=== PATIENT | female | born 1985 | race Caucasian/White ===

== ENCOUNTER → 2016-08-05 | Outpatient (CLI) | payer OTHER ==
[~2016-08-05] MED LIST: FERR1TAB23; PRENTAB65 PO
[2016-08-05 17:42] LABS: BASO % 0.2 %; BASO ABS # 0.02 K/uL (0-0.2); COMPLETE YES; EOS % 1.1 %; HEMATOCRIT 35.7 % (37-47); IG% 0.4 %; LYMPH % 25.5 %; LYMPH ABS # 2.91 K/uL (1.2-3.4); MEAN CELL VOLUME 87.9 fL (80-100); MEAN CORPUSCULAR HEMOGLOBIN 29.3 pg (25-34); MEAN CORPUSCULAR HGB CONC 33.3 g/dl (32-36); MEAN PLATELET VOLUME 9.9 fL (7.4-10.4); MONO % 5.3 %; NEUT % 67.5 %; PLATELET COUNT 270 K/uL (130-400); RED BLOOD COUNT 4.06 M/uL (4.2-5.4); WHITE BLOOD COUNT 11.42 K/uL (4.8-10.8)
[2016-08-08 13:25] LABS: CHLAMYDIA TRACH RNA*** NOT DETECTED (NOT DETECTED); GC (NEIS GONORRHOEAE)RNA** NOT DETECTED (NOT DETECTED)
== END | disposition home or self-care (01) ==
LOC: C.LAB1850 16:04
PROVIDERS: ATTEND Obstetrics & Gynecology
DX: R00.2 Palpitations (principal); Z34.90 Encounter for supervision of normal pregnancy, unspecified, unspecified trimester

== ENCOUNTER → 2016-08-05 | Outpatient (CLI) | payer OTHER | END | disposition home or self-care (01) | LOC: C.PAPS 08:46 | PROVIDERS: ATTEND Obstetrics & Gynecology | DX: Z34.90 Encounter for supervision of normal pregnancy, unspecified, unspecified trimester (principal); R87.612 Low grade squamous intraepithelial lesion on cytologic smear of cervix (LGSIL) ==

== ENCOUNTER 2016-08-06 11:25 | Emergency (ER) | payer OTHER ==
[~2016-08-06] VITALS: Ht 162.6 cm; Wt 53.5 kg
[2016-08-06 11:31] VITALS: TEMP 37.1; Ht 162.6 cm; Wt 53.5 kg
[2016-08-06 12:42] LABS: PROTHROMBIN TIME (PATIENT) 10.6 SECONDS (9.0-12.0)
[2016-08-06 13:01] LABS: ALT/SGPT 16 U/L (12-78); AST/SGOT 11 U/L (15-37); BLOOD UREA NITROGEN 8 mg/dl (7-18); BUN/CREATININE RATIO 16.9 (10-20); CALCIUM 8.6 mg/dl (8.5-10.1); CARBON DIOXIDE 24 mmol/L (21-32); CHLORIDE 106 mmol/L (98-107); CREATININE 0.49 mg/dl (0.60-1.20); GLUCOSE 70 mg/dl (70-99); MAGNESIUM 2.2 mg/dl (1.8-2.4); POTASSIUM 3.7 mmol/L (3.5-5.1); SODIUM 139 mmol/L (136-145)
--- NOTE | 2016-08-06 13:05 | DIAGNOSTIC IMAGING REPORT ---
ULTRASOUND VENOUS DOPPLER LWR EXT BILA CLINICAL HISTORY: Leg swelling CHEST PAIN AND SHORTNESS OF BREATH. . COMPARISON STUDY: No previous studies for comparison. FINDINGS: Real-time and color flow Doppler imaging were performed. Flow was seen within the femoral, popliteal and calf veins with no intraluminal thrombus demonstrated. The saphenous vein is patent. IMPRESSION: No evidence of lower extremity DVT. Electronically signed by: Tommy Jones M.D. 08/06/2016 1:04 PM
[2016-08-06 13:07] LABS: ALB/GLOB RATIO 1.1 (0.9-2); ALKALINE PHOSPHATASE 54 U/L (45-117); CKMB/CK RATIO 1.1 (0-3.0)
[2016-08-06 13:09] LABS: BASO % 0.2 %; BASO ABS # 0.02 K/uL (0-0.2); COMPLETE YES; EOS % 1.1 %; HEMATOCRIT 35.6 % (37-47); IG% 0.3 %; LYMPH % 22.1 %; LYMPH ABS # 2.49 K/uL (1.2-3.4); MEAN CELL VOLUME 87.3 fL (80-100); MEAN CORPUSCULAR HEMOGLOBIN 29.2 pg (25-34); MEAN CORPUSCULAR HGB CONC 33.4 g/dl (32-36); MONO % 5.6 %; NEUT % 70.7 %; PLATELET COUNT 256 K/uL (130-400); RED BLOOD COUNT 4.08 M/uL (4.2-5.4); WHITE BLOOD COUNT 11.29 K/uL (4.8-10.8)
--- NOTE | 2016-08-06 13:18 | DIAGNOSTIC IMAGING REPORT ---
CHEST 2 VIEWS ROUTINE CLINICAL HISTORY: Left-sided chest pain COMPARISON STUDY: No previous studies for comparison. FINDINGS: The cardiac and mediastinal contours are normal. There is no evidence of focal pulmonary consolidation. There is no evidence of failure. No pleural effusions are visualized.[ IMPRESSION: No active disease in the chest. Electronically signed by: Tommy Jones M.D. 08/06/2016 1:16 PM
[2016-08-06 13:27] VITALS: O2SAT 99
[2016-08-06 14:05] LABS: URINE APPEARANCE CLOUDY (CLEAR); URINE BILIRUBIN NEG (NEG); URINE COLOR YELLOW; URINE EPITHELIAL CELL AUTO >30 /lpf (0-5); URINE NITRITE NEG (NEG); URINE SPECIFIC GRAVITY 1.006 (1.000-1.030); UROBILINOGEN NEG (NEG)
[2016-08-06 14:09] LABS: MANUAL MICROSCOPIC REQUIRED? NO; REVIEW REQ? NO
[2016-08-06 14:17] VITALS: BP 111/68; PULSE 101
--- NOTE | 2016-08-06 14:30 | EMERGENCY ROOM VISIT NOTE ---
History First contact with patient: 11:40 Chief Complaint: DIZZY Stated Complaint: CHEST PAIN RAPID HEART 11 WEEKS PREG Nursing Triage Summary: triage note: Pt reports she is 11 weeks preg. pt reports left chest pain started at approx 1000 today. pt reports feeling short of breath. "my eyes got really blurry and i got dizzy, i still feel dizzy." History of Present Illness Patient is an otherwise healthy 11 week 30-year-old white female who presents to emergency department for evaluation of left-sided chest pain and shortness of breath. Patient notes that she has had intermittent chest pain and shortness of breath over the last couple of weeks, but they were "not bad enough to do something about." She had an OB appointment for her intake exam yesterday, and was told that if her symptoms worsen she should go to the emergency department for evaluation. Her appointment otherwise went well yesterday. Ultrasound confirmed intrauterine consistent with her dates. She had laboratory studies performed but she is unaware of the results. Today, roughly 90 minutes prior to arrival in the emergency department, the patient was cleaning up some toys around her home when she began to feel a "pinching" pain in her left chest. She states that it was sharp and wrapped around the left side and radiated through to her left back. She rated it a 10/ 10 at its worst. She states that she felt like she could not take a deep breath. She felt a little dizzy and noticed some blurry vision. She sat down, and when her symptoms did not significantly improve, she called her . She states that her symptoms are better when she sits still and worse when she moves or talks. She also feels better if she holds the area." She has not taken any medications, nor performed any interventions for her second symptoms either today, or in the past. She denies any recent cold or upper respiratory symptoms, cough or sputum production. No fever or chills. No personal or family history of a DVT or PE. She does not smoke. She has never experienced symptoms similar to this previously. Review of Systems Review of systems as per HPI. All other systems reviewed were negative. 10 systems reviewed. Past Medical/Surgical History Medical Problems: (1) No Known Active Medical Problems Electronic medical records are reviewed and summarized as above/below. See Problem List. Social History Smoking Status: Never Smoker Marital Status: Housing Status: lives with family Occupation Status: unemployed Current/Historical Medications Scheduled Multivit-Min W/Fe-Fa (), 1 TAB PO DAILY Allergies Coded Allergies: No Known Allergies (Unverified , 08/06/16) Physical Exam Vital Signs Date Time Temp Pulse Resp B/P Pulse Ox O2 Delivery O2 Flow Rate FiO2 08/06/16 14:17 74 112/54 86 113/72 101 111/68 08/06/16 13:27 74 18 130/44 99 Room Air 08/06/16 12:54 78 08/06/16 11:31 37.1 75 20 113/78 100 Room Air Physical Exam CONSTITUTIONAL: Patient is a well-appearing 30-year-old white female who is awake and alert and in no acute distress. She is seated upright on the gurney, holding her left upper chest. Vital signs are stable. She is afebrile. EYES: Pupils equal, round, reactive to light and accommodation. EOMs intact without nystagmus. Sclera are anicteric. ENT: Tympanic membranes intact, with normal landmarks. External canals are clear. Oral and nasopharynx are clear. Mucous membranes are moist, no lesions , tongue and gums appear normal. NECK: No bruits auscultated. Supple without lymphadenopathy. No thyromegaly. No meningeal signs. Full active range of motion without discomfort. CARDIOVASCULAR: Regular rate and rhythm, with normal S1 and S2, no murmur or gallop or rub is heard. No carotid bruits auscultated. No JVD. Peripheral pulses easy to palpable. RESPIRATORY: Breath sounds equal and clear to auscultation without wheezes, rales, or rhonchi heard. Full and equal chest expansion without accessory muscle use or retractions. Slight tenderness to palpation in the left upper chest wall. GI: Bowel sounds are present. Abdomen is soft, nontender, nondistended. No organomegaly. No pulsatile masses. No guarding or rebound. MUSCULOSKELETAL: Full range of motion of extremities x 4 with good strength. No cyanosis, edema, joint tenderness or swelling. No deformity. INTEGUMENTARY: No lesions or rash, normal skin turgor. NEUROLOGICAL: Alert, oriented, and cooperative. Cranial nerves, sensation and strength grossly intact. Pupils round, equal, and react to light, EOMs are full. LYMPH: No lymphadenopathy. Medical Decision & Procedures ER Provider Diagnostic Interpretation: CHEST 2 VIEWS ROUTINE CLINICAL HISTORY: Left-sided chest pain COMPARISON STUDY: No previous studies for comparison. FINDINGS: The cardiac and mediastinal contours are normal. There is no evidence of focal pulmonary consolidation. There is no evidence of failure. No pleural effusions are visualized. IMPRESSION: No active disease in the chest. ULTRASOUND VENOUS DOPPLER LWR EXT BILA CLINICAL HISTORY: Leg swelling CHEST PAIN AND SHORTNESS OF BREATH. . COMPARISON STUDY: No previous studies for comparison. FINDINGS: Real-time and color flow Doppler imaging were performed. Flow was seen within the femoral, popliteal and calf veins with no intraluminal thrombus demonstrated. The saphenous vein is patent. IMPRESSION: No evidence of lower extremity DVT. Laboratory Results 08/06/16 12:10 Red Blood Count 4.08, Mean Corpuscular Volume 87.3, Mean Corpuscular Hemoglobin 29.2, Mean Corpuscular Hemoglobin Concent 33.4, Mean Platelet Volume 10.0, Neutrophils (%) (Auto) 70.7, Lymphocytes (%) (Auto) 22.1, Monocytes (%) (Auto) 5.6, Eosinophils (%) (Auto) 1.1, Basophils (%) (Auto) 0.2, Neutrophils # (Auto) 8.00, Lymphocytes # (Auto) 2.49, Monocytes # (Auto) 0.63, Eosinophils # (Auto) 0.12, Basophils # (Auto) 0.02 08/06/16 12:10 Test 08/06/16 12:10 08/06/16 12:18 08/06/16 13:07 White Blood Count 11.29 K/uL (4.8-10.8) Red Blood Count 4.08 M/uL (4.2-5.4) Hemoglobin 11.9 g/dL (12.0-16.0) Hematocrit 35.6 % (37-47) Mean Corpuscular Volume 87.3 fL (80-100) Mean Corpuscular Hemoglobin 29.2 pg (25-34) Mean Corpuscular Hemoglobin Concent 33.4 g/dl (32-36) Platelet Count 256 K/uL (130-400) Mean Platelet Volume 10.0 fL (7.4-10.4) Neutrophils (%) (Auto) 70.7 % Lymphocytes (%) (Auto) 22.1 % Monocytes (%) (Auto) 5.6 % Eosinophils (%) (Auto) 1.1 % Basophils (%) (Auto) 0.2 % Neutrophils # (Auto) 8.00 K/uL (1.4-6.5) Lymphocytes # (Auto) 2.49 K/uL (1.2-3.4) Monocytes # (Auto) 0.63 K/uL (0.11-0.59) Eosinophils # (Auto) 0.12 K/uL (0-0.5) Basophils # (Auto) 0.02 K/uL (0-0.2) RDW Standard Deviation 44.9 fL (36.4-46.3) RDW Coefficient of Variation 14.1 % (11.5-14.5) Immature Granulocyte % (Auto) 0.3 % Immature Granulocyte # (Auto) 0.03 K/uL (0.00-0.02) Prothrombin Time 10.6 SECONDS (9.0-12.0) Prothromb Time International Ratio 1.0 (0.9-1.1) Activated Partial Thromboplast Time 26.5 SECONDS (21.0-31.0) Partial Thromboplastin Ratio 1.0 Anion Gap 9.0 mmol/L (3-11) Est Creatinine Clear Calc Drug Dose 141.8 ml/min Estimated GFR () > 150.0 Estimated GFR (Non- 130.7 BUN/Creatinine Ratio 16.9 (10-20) Calcium Level 8.6 mg/dl (8.5-10.1) Magnesium Level 2.2 mg/dl (1.8-2.4) Total Bilirubin 0.6 mg/dl (0.2-1) Aspartate Amino Transf (AST/SGOT) 11 U/L (15-37) Alanine Aminotransferase (ALT/SGPT) 16 U/L (12-78) Alkaline Phosphatase 54 U/L (45-117) Total Creatine Kinase 63 U/L (26-192) Creatine Kinase MB 0.7 ng/ml (0.5-3.6) Creatine Kinase MB Ratio 1.1 (0-3.0) Troponin I < 0.015 ng/ml (0-0.045) Total Protein 7.2 gm/dl (6.4-8.2) Albumin 3.7 gm/dl (3.4-5.0) Globulin 3.5 gm/dl (2.5-4.0) Albumin/Globulin Ratio 1.1 (0.9-2) Bedside D-Dimer > 450 ng/mlFEU (0-450) Urine Color YELLOW Urine Appearance CLOUDY (CLEAR) Urine pH 8.0 (4.5-7.5) Urine Specific [place] 1.006 (1.000-1.030) Urine Protein NEG (NEG) Urine Glucose (UA) NEG (NEG) Urine Ketones NEG (NEG) Urine Occult Blood NEG (NEG) Urine Nitrite NEG (NEG) Urine Bilirubin NEG (NEG) Urine Urobilinogen NEG (NEG) Urine Leukocyte Esterase NEG (NEG) Urine WBC (Auto) 0 /hpf (0-5) Urine RBC (Auto) 0-4 /hpf (0-4) Urine Hyaline Casts (Auto) 0 /lpf (0-5) Urine Epithelial Cells (Auto) >30 /lpf (0-5) Urine Bacteria (Auto) NEG (NEG) ECG Indication: chest pain Rate (beats per minute): 73 Rhythm: normal sinus Findings: no acute ischemic change, no ectopy Comparison ECG Date: no prior available ED Course The patient was seen and assessed as above. Old records were reviewed including her laboratory studies from yesterday. History and presentation were reviewed with Dr. Hinds and ED workup was agreed upon. IV access was obtained. EKG was performed and was as noted above. She is placed on a radiation monitor and observed through her ED workup. Orthostatic vitals were performed, and did demonstrate mild orthostasis.. CBC with differential, coags , mag, cardiac enzymes including CK, CK-MB and troponin, CMP and [id number]-[id number] d -dimer were all performed. Chest x-ray was obtained and was unremarkable. Bilateral lower extremity ultrasounds were performed and were negative for DVT. Laboratory studies revealed a white count of 11,200. H&H 11.9 and 35.6. Electrolytes are without significant abnormality. BUN and creatinine 8 and 0.49. Liver functions are normal. Cardiac enzymes are negative 1. Urinalysis completely clear without signs of infection. Coags are unremarkable. Her [id number] d-dimer was elevated at 750. All laboratory and diagnostic imaging studies were reviewed with attending physician, and discussed with the patient and her at length. Her ER workup is largely unrevealing. While she does have an elevated d-dimer, this could be attributed to her early . Otherwise, statistically, she is felt to be low risk for a pulmonary embolus, and after discussing the risks, benefits and alternatives, the patient does not want to pursue a chest CT at this time, which I feel is reasonable. She is aware however that if her symptoms return or worsen she should immediately return to the emergency department for further evaluation, at which point a chest CT will likely be necessary. She should follow up with OB as scheduled, and with her primary care physician next week for further care and management. Differential diagnosis includes acute myocardial infarction, acute coronary syndrome, myocarditis, pericarditis, pericardial effusions/tamponade, pulmonary embolism, pneumonia, pneumothorax, cardiomyopathy, anemia, COPD/asthma exacerbation, musculoskeletal, anxiety, costochondritis. Medical Decision See ED Course. Impression Primary Impression: Chest pain Additional Impression: First trimester Departure Information Referrals No Doctor, Assigned (PCP) Patient Instructions A Signature Page, Baby World Language Additional Instructions Acetaminophen(Tylenol) may be used for fever or pain. Use 1000mg every six hours as needed. Avoid using more than 3000mg in a 24 hour period. Rest and drink plenty of fluids as tolerated. Continue current medications. Avoid strenuous activities and anything that worsens your pain. Resume normal activities once your symptoms resolve. Return to the ER immediately for worsening or persistent chest pain, abdominal pain, vomiting, fevers, chest pains, difficulty breathing, worsening of your condition, or as needed. Follow up with your primary physician in 2-3 days for a recheck of your current condition. Follow-up with COMMUNITY BOARD MEMBER as scheduled.
[2016-08-06] MEDS ORDERED: PRENTAB65 PO (14:46)
== END 2016-08-06 14:40 | disposition home or self-care (01) ==
LOC: C.EDB 11:28 → C.EDC 14:40
DX: O99.89 Other specified diseases and conditions complicating pregnancy, childbirth and the puerperium (principal); R07.9 Chest pain, unspecified; I95.1 Orthostatic hypotension; R79.1 Abnormal coagulation profile; Z3A.11 11 weeks gestation of pregnancy

== ENCOUNTER → 2016-09-05 | Outpatient (CLI) | payer OTHER ==
[2016-09-05 14:29] LABS: POTASSIUM 3.4 mmol/L (3.5-5.1)
[2016-09-05 14:42] LABS: THYROID STIMULATING HORMONE 3.78 uIu/ml (0.300-4.500)
[2016-09-05 14:46] LABS: GTGD 50 Grams
== END | disposition home or self-care (01) ==
LOC: C.LAB1850 12:38
PROVIDERS: ATTEND Obstetrics & Gynecology
DX: Z34.82 Encounter for supervision of other normal pregnancy, second trimester (principal); R00.2 Palpitations

== ENCOUNTER → 2016-09-18 | Outpatient (CLI) | payer OTHER ==
[2016-09-18 12:09] LABS: MAGNESIUM 2.2 mg/dl (1.8-2.4); THYROID STIMULATING HORMONE 1.61 uIu/ml (0.300-4.500)
[2016-09-19 16:12] LABS: MICROSOMAL AB <1 IU/ML (<9)
== END | disposition home or self-care (01) ==
LOC: C.LAB1850 10:06
PROVIDERS: ATTEND Internal Medicine Endocrinology, Diabetes & Metabolism
DX: R00.2 Palpitations (principal); E03.9 Hypothyroidism, unspecified; Z33.1 Pregnant state, incidental; M79.1 Myalgia

== ENCOUNTER → 2016-11-28 | Outpatient (CLI) | payer OTHER ==
[2016-11-28 16:39] LABS: HEMATOCRIT 29.2 % (37-47)
[2016-11-28 19:10] LABS: GTGD 50 Grams
== END | disposition home or self-care (01) ==
LOC: C.LAB1850 15:10
PROVIDERS: ATTEND Obstetrics & Gynecology
DX: Z34.82 Encounter for supervision of other normal pregnancy, second trimester (principal)

== ENCOUNTER → 2016-11-28 | Outpatient (CLI) | payer OTHER ==
[2016-11-28 17:01] LABS: URINE APPEARANCE CLEAR (CLEAR); URINE BILIRUBIN NEG (NEG); URINE COLOR YELLOW; URINE EPITHELIAL CELL AUTO >30 /lpf (0-5); URINE NITRITE NEG (NEG); URINE SPECIFIC GRAVITY 1.009 (1.000-1.030); UROBILINOGEN NEG (NEG)
[2016-11-28 17:02] LABS: MANUAL MICROSCOPIC REQUIRED? NO; REVIEW REQ? NO
== END | disposition home or self-care (01) ==
LOC: C.LABSPEC 16:07
PROVIDERS: ATTEND Obstetrics & Gynecology
DX: Z34.82 Encounter for supervision of other normal pregnancy, second trimester (principal)

== ENCOUNTER → 2016-12-05 | Outpatient (CLI) | payer OTHER | END | disposition home or self-care (01) | LOC: C.LAB1850 10:37 | PROVIDERS: ATTEND Obstetrics & Gynecology | DX: O28.9 Unspecified abnormal findings on antenatal screening of mother (principal); Z3A.00 Weeks of gestation of pregnancy not specified ==

== ENCOUNTER 2016-12-16 14:43 | Outpatient (CLI) | payer OTHER ==
[~2016-12-16] VITALS: Ht 162.6 cm; Wt 63.5 kg
[~2016-12-16 14:43] MED LIST changes: -FERR1TAB23
[2016-12-16] MEDS ORDERED: FERR1TAB23 (15:55)
[2016-12-16 15:59] VITALS: Ht 162.6 cm; Wt 63.5 kg
[2016-12-16 16:16] LABS: URINE APPEARANCE CLEAR (CLEAR); URINE BILIRUBIN NEG (NEG); URINE COLOR YELLOW; URINE EPITHELIAL CELL AUTO >30 /lpf (0-5); URINE NITRITE NEG (NEG); URINE PH >= 9.0 (4.5-7.5); UROBILINOGEN NEG (NEG); ZZUR CULT IF INDIC CLEAN CATCH NO
[2016-12-16 16:19] LABS: MANUAL MICROSCOPIC REQUIRED? NO; REVIEW REQ? NO
== END 2016-12-16 16:27 | disposition home or self-care (01) ==
LOC: C.OPB 14:43 → C.LD 14:43 → C.OPB 16:27
PROVIDERS: ATTEND Obstetrics & Gynecology
DX: O26.893 Other specified pregnancy related conditions, third trimester (principal); Z3A.30 30 weeks gestation of pregnancy

== ENCOUNTER → 2017-01-30 | Outpatient (CLI) | payer OTHER ==
[~2017-01-30] MED LIST changes: +FERR1TAB23
== END | disposition home or self-care (01) ==
LOC: C.LABSPEC 15:20
PROVIDERS: ATTEND Obstetrics & Gynecology
DX: Z34.83 Encounter for supervision of other normal pregnancy, third trimester (principal)

== ENCOUNTER 2017-02-24 09:03 | Inpatient (IN) | payer OTHER ==
[~2017-02-24] VITALS: Ht 162.6 cm; Wt 64.0 kg
[2017-02-24] MEDS ORDERED: LACTATED RINGER'S 1000ML 1,000 ML IV SCH (09:11)
[2017-02-24] MEDS ORDERED: LACTATED RINGER'S 1000ML 1,000 ML IV PRN (09:11)
[2017-02-24] MEDS ORDERED: OXYTOCIN 30 UNITS/500ML NSS IV ONE (09:25)
[2017-02-24 09:47] LABS: HEMATOCRIT 35.1 % (37-47); MEAN CELL VOLUME 83.6 fL (80-100); MEAN CORPUSCULAR HEMOGLOBIN 26.9 pg (25-34); MEAN CORPUSCULAR HGB CONC 32.2 g/dl (32-36); MEAN PLATELET VOLUME 10.7 fL (7.4-10.4); PLATELET COUNT 197 K/uL (130-400); WHITE BLOOD COUNT 11.52 K/uL (4.8-10.8)
[2017-02-24] MEDS ORDERED: SUPERCREAM 0.870 % 15GM JAR EXT PRN (10:00)
[2017-02-24] MEDS ORDERED: OXYTOCIN 30 UNITS/500ML NSS IV PRN (10:00)
[2017-02-24] MEDS ORDERED: LANOLIN OINT EXT PRN ×2 (10:00)
[2017-02-24] MEDS ORDERED: ACETAMINOPHEN/CODEINE 300/30MG TAB PO PRN ×2 (10:00)
[2017-02-24] MEDS ORDERED: BENZOCAINE 20% AER SPR 82.5 GM CAN EXT PRN (10:00)
[2017-02-24] MEDS ORDERED: IBUPROFEN 600 MG TAB PO PRN (10:00)
[2017-02-24] MEDS ORDERED: OXYCODONE/ACETAMINOPHEN 5-325 TAB PO PRN (10:00)
[2017-02-24] MEDS ORDERED: DIPHTHERIA/TETANUS/PERTUSSIS 0.5 ML SYR/VIAL IM. ONE (10:00)
[2017-02-24] MEDS ORDERED: HYDROCORTISONE ACETATE 25 MG SUPP PR PRN (10:00)
[2017-02-24] MEDS ORDERED: ACETAMINOPHEN 325 MG TAB PO PRN (10:00)
--- NOTE | 2017-02-24 10:15 | DELIVERY SUMMARY ---
DATE OF OPERATION: 02/24/2017 VAGINAL DELIVERY NOTE DATE OF DELIVERY: 02/24/2017. Елена presented at 40 weeks and 3 days. This is her 4th baby, 3 prior vaginal deliveries. Group B strep negative, uncomplicated . She was initially 6 cm. She was offered epidural but declined this. She rapidly progressed to fully. ARM was performed showing moderate meconium. She soon started pushing and delivered over several contractions to delivering a baby in right occiput anterior position. Mouth and then nares were suctioned with bulb and baby delivered with gentle traction. No excessive force used. Live vigorous infant. Cord clamped and cut, cord gasses obtained, cord blood obtained. Placenta removed with gentle traction. There was no tearing. Placenta was removed with traction and estimated blood loss 100 mL. Sponge and instrument counts correct. I attest to the content of the Intraoperative Record and any orders documented therein. Any exception s are noted below.
--- NOTE | 2017-02-24 11:03 | Medical Student: [facility] ---
Medical Student Delivery Note Pt is a 31 y.o. F with an GARDENIA of 02/21/2017 at 40 and 3/7 weeks who presents with regular contractions and rule out ROM. Pt is blood type O+, rubella immune, and GBS negative. She did not receive an epidural for pain control, and began pushing after becoming completely effaced and dilated and AROM was performed. At 0951, a viable male infant with right anterior occiput presentation was suctioned in the mouth and nares and delivered. Some meconium was noted and baby was suctioned and cleaned. Cord was clamped and cut by father of baby, and cord blood and gas were obtained. An intact placenta was delivered with gentle downward traction. External uterine massage was applied to help achieve hemostasis. EBL 100ml. scores were 8 and 9. Mother and baby are both doing well and recovering.
[2017-02-24 11:05] VITALS: Ht 162.6 cm; Wt 64.0 kg
[2017-02-24 13:40] VITALS: BP 121/67; PULSE 111; TEMP 36.7
[2017-02-24 16:05] VITALS: BP 129/79; PULSE 106; TEMP 37.4; O2SAT 99
[2017-02-24 16:13] VITALS: O2SAT 99
[2017-02-24] MEDS: DOCUSATE SODIUM 100 MG CAP PO SCH (20:00)
[2017-02-24 20:45] VITALS: BP 126/76; PULSE 79; TEMP 37.7
[2017-02-25] VITALS: BP 111/71; PULSE 76; TEMP 37.1
[2017-02-25 05:37] VITALS: BP 98/61; PULSE 76; TEMP 37.3
--- NOTE | 2017-02-25 06:32 | OB/GYN Progress Note ---
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 Subjective conversation w/ patient, physical exam, chart review, lab review Ambulation: ambulating normally Voiding: no voiding problems Passing Gas: Yes Diet Tolerance: Regular Diet Lochia: Small Feeding Type: Breast Feeding Pain: Says low abd cramping with breast feeding Review of Systems Constitutional: No fever, No chills Respiratory: No cough, No shortness of breath Cardiac: No chest pain Abdomen: No nausea, No vomiting, No diarrhea Female : No dysuria Objective Vital Signs Date Time Temp Pulse Resp B/P (MAP) Pulse Ox O2 Delivery O2 Flow Rate FiO2 02/25/17 05:37 37.3 76 18 98/61 (73) 02/25/17 00:00 37.1 76 18 111/71 (84) 02/25/17 00:00 Room Air 02/24/17 20:45 37.7 79 18 126/76 (93) 02/24/17 16:13 99 Room Air 02/24/17 16:05 37.4 106 16 129/79 (96) 99 Room Air 02/24/17 13:40 36.7 111 16 121/67 Physical Exam General Appearance: WELL-APPEARING, WD/WN, NO APPARENT DISTRESS Respiratory/Chest: lungs clear, normal breath sounds Cardiovascular: regular rate, rhythm Abdomen: normal bowel sounds, non tender, soft Fundus: Firm, Non-Tender, Relation to Umbilicus (at umbilicus) Extremities: normal range of motion, non-tender, no pedal edema, no calf tenderness Laboratory Results Last 24 Hours Test 02/24/17 09:18 02/25/17 04:44 White Blood Count 11.52 K/uL Red Blood Count 4.20 M/uL Hemoglobin 11.3 g/dL Hematocrit 35.1 % Mean Corpuscular Volume 83.6 fL Mean Corpuscular Hemoglobin 26.9 pg Mean Corpuscular Hemoglobin Concent 32.2 g/dl RDW Standard Deviation 48.1 fL RDW Coefficient of Variation 15.8 % Platelet Count 197 K/uL Mean Platelet Volume 10.7 fL Assessment and Plan Post- Day Number: 1 Continue Routine Care: 31yo s/p , now PPD #1. - Blood type O positive. GBS negative. Rubella immune. - Vital signs reviewed and stable. - Pain controlled without PO meds thus far. - No leg swelling or tenderness on calf palpation. Encourage ambulation. - Encourage breast feeding. - Hemoglobin pre-delivery 11.3, post-delivery pending this am. Bleeding has improved. Continue to monitor clinically. - Continue routine post-vaginal delivery care. - Pt agreed with above plan, all current questions answered. Heber Jordan MD, PGY1 Program Support Assistant Physician Supervision Note: I interviewed and examined the patient. Discussed with Dr. Jordan and agree with findings and plan as documented in the note. Any exceptions or clarifications are listed here: [None] Documented By: Hunter Flowers Resident Tracking Resident Involvement: Resident Care Provided Care Provided: OB Delivery (morning rounds)
--- NOTE | 2017-02-25 06:54 | Medical Student: [facility] ---
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 Subjective conversation w/ patient, physical exam, chart review, lab review Voiding: no voiding problems Passing Gas: Yes Diet Tolerance: Regular Diet Lochia: Small Feeding Type: Breast Feeding Review of Systems Constitutional: No fever, No chills Respiratory: No shortness of breath Cardiac: No chest pain Female : No dysuria Objective Vital Signs Date Time Temp Pulse Resp B/P (MAP) Pulse Ox O2 Delivery O2 Flow Rate FiO2 02/25/17 05:37 37.3 76 18 98/61 (73) 02/25/17 00:00 37.1 76 18 111/71 (84) 02/25/17 00:00 Room Air 02/24/17 20:45 37.7 79 18 126/76 (93) 02/24/17 16:13 99 Room Air 02/24/17 16:05 37.4 106 16 129/79 (96) 99 Room Air 02/24/17 13:40 36.7 111 16 121/67 Physical Exam General Appearance: WELL-APPEARING, WD/WN, NO APPARENT DISTRESS Cardiovascular: regular rate, rhythm Abdomen: normal bowel sounds, non tender Fundus: Firm, Non-Tender, Relation to Umbilicus (at umbilicus) Extremities: no calf tenderness Laboratory Results Last 24 Hours Test 02/24/17 09:18 02/25/17 06:32 White Blood Count 11.52 K/uL Red Blood Count 4.20 M/uL Hemoglobin 11.3 g/dL Hematocrit 35.1 % Mean Corpuscular Volume 83.6 fL Mean Corpuscular Hemoglobin 26.9 pg Mean Corpuscular Hemoglobin Concent 32.2 g/dl RDW Standard Deviation 48.1 fL RDW Coefficient of Variation 15.8 % Platelet Count 197 K/uL Mean Platelet Volume 10.7 fL Assessment and Plan Post- Day Number: 1 Continue Routine Care: Pt is a 31 y.o. with PPD#1. Blood type O positive, GBS negative, rubella immune. - Pt vital signs are stable. - Has not needed pain control with PO meds post-delivery. - Encourage ambulation and . - Pre-delivery Hgb is 11.3, post-delivery Hgb pending. Bleeding has improved and will continue to monitor. - Continue routine post-vaginal delivery care.
[2017-02-25 06:55] LABS: HEMATOCRIT 31.9 % (37-47)
--- NOTE | 2017-02-25 06:57 | Discharge Instructions ---
Discharge Instructions Date of Service Feb 25, 2017. Admission Reason for Admission: R/O Rupture Of Membranes Discharge Discharge Diagnosis / Problem: Recovery from vaginal delivery Discharge Goals Goal(s): Routine recovery after delivery Medications Continue Dispensed Medications: supercream, dermaplast, tucks, lansinoh Activity Recommendations Activity Limitations: per Instructions/Follow-up section . Instructions / Follow-Up Instructions / Follow-Up ACTIVITY RECOMMENDATIONS: * Gradual return to full activity over the next 2-3 weeks. * No lifting - nothing heavier than baby over the next 2-3 weeks. * Do not engage in vigorous exercise, sexual activity or sports until cleared by your physician. * Do not drive or operate any motorized equipment until cleared by your physician. * You may shower/bathe daily. MEDICATIONS: For discomfort or pain, you may use Acetaminophen (Tylenol), Ibuprofen (Advil), or Naproxen (Aleve) following the package directions. For constipation you may use Colace following the package directions. BREAST CARE: If you are not breast feeding: * Wear a supportive bra 24 hours a day for one to two weeks. * Avoid stimulating your breasts and nipples as much as possible during the first few weeks after delivery. * When taking a shower, have the warm water hit your back, not breasts. * When your breasts feel full, apply ice packs. Usually three to four times a day helps ease the discomfort. * Take a mild pain medication (Tylenol / Motrin) when you are uncomfortable. If breast feeding: * Use breast milk to lubricate nipples. Lansinoh cream may be used for sore nipples. You do not need to remove cream prior to breast feeding. If using a different brand of cream, check the label for directions regarding removal of cream prior to nursing. * Wear a supportive bra. * If having problems with breasts or breast feeding, call a business objects consultant or your health care provider. EPISIOTOMY CARE: After delivery, if you have an episiotomy (stitches), the following steps will ease discomfort and aid healing. * For the first 24 hours after delivery, place ice packs next to your episiotomy to help reduce swelling. * After the first 24 hour-period, sitz baths, either portable or in the tub, are suggested. A shower with a shower arm sprayed over the episiotomy may be comforting. * Adri care should be done after each voiding and bowel movement. Squirt warm water from a plastic bottle over the perineum (region of the body between the anus and urinary opening) and pat dry. * Use Dermoplast to ease discomfort. Shake container. [place] directly over the episiotomy. Place a Tucks on a clean sanitary pad next to your episiotomy. SPECIAL CARE INSTRUCTIONS: When you are discharged from the hospital, it is important for you to follow the instructions listed below: * During the first week at home, you should be able to care for yourself and your baby. In addition, the usual light household activities are encouraged. * Limit your activities to the way you feel. Do not try to clean the house or move furniture. Be sensible. * If you actively engage in sports and have done so up until the time of your delivery, you may resume these activities as soon as you feel able. This may take up to one month or even longer. Use good judgment. * Continue to take your vitamins for at least six weeks after the of your baby. * Your diet need not be limited unless you were on a special diet before your delivery. Breast-feeding mothers need around 2500 calories per day and at least 64-80 ounces of fluid per day (8 to 10 glasses). * You should eat foods from the four major food groups. Crash diets or fad diets are to be avoided. Eating lean meats, fresh fruits and vegetables, low-fat dairy products, high fiber foods and a regular exercise program, will help you get back to your pre- weight without putting your health at risk. * Constipation is sometimes a problem after delivery. Take a mild laxative as needed. If breast feeding, Milk of Magnesia is acceptable to use. You may use a suppository or Fleets enema if no episiotomy. * A daily shower or tub bath is suggested. Be sure to thoroughly and gently dry the perineum. * A bloody vaginal discharge will usually continue until around four weeks post . A small amount of bleeding may continue for as long as six weeks. Vaginal discharge changes from the bright red bleeding after delivery to pink then brownish and finally yellowish-pink before becoming white and disappearing. * Bleeding may increase with activity. Your first period may come in 4-8 weeks. If you are breast feeding, your period may be delayed even longer. * [place] (sex) can begin whenever both you and your partner feel comfortable and do not have any form of genital infection. It is recommended that you wait at least six weeks for internal and external healing to occur. If you have questions, please talk to your health care practitioner. A condom should be used to prevent infection and . * Foreplay, gentle intercourse and lubrication is very important the first several times to prevent pain. A water-based lubricant such as K-Y jelly or Astroglide may be used. * If you have RH negative blood and your baby is RH positive, you will receive RHOGAM by injection prior to discharge. The nurse will give you a card to keep with you that has the date and place that you received RHOGAM after delivery. * During your care, you had a Rubella screen done to check for the presence of rubella antibodies in your blood. If your test was negative, you will receive a Rubella vaccine prior to discharge. This vaccine may cause a fever, soreness at the injection site and flu-like symptoms. If these symptoms persist, notify your health care practitioner. is not advised for one month after a Rubella vaccine. * Verbalizes understanding of car seat law as reviewed with patient nursing. * Car Seat hand-out given and reviewed with patient by nursing. * Shaken baby information reviewed with patient by nursing. Call you doctor if: * Heavy bleeding (saturating several pads an hour) or passing clots the size of your fist. * A fever >101 degrees F (38.3 degrees C) on two occasions four hours apart and /or chills. * Unusual pain in the pelvic or vaginal areas. * "Baby Blues" lasting longer than two weeks. If you have any questions or concerns, call your health care practitioner at . FOLLOW UP VISIT: * Please call the office at to schedule a 6 week examination. It is important you keep this appointment. It is important for you to make arrangements for either yearly or twice yearly check-ups thereafter. Current Hospital Diet Patient's current hospital diet: Regular OB Diet Discharge Diet Recommended Diet: Regular OB Diet Pending Studies Studies pending at discharge: no Medical Emergencies . Who to Call and When: Medical Emergencies: If at any time you feel your situation is an emergency, please call 911 immediately. . Non-Emergent Contact Non-Emergency issues call your: Rn Emergency . . "Provider Documentation" section prepared by Heber Jordan. . VTE Core Measure Inpt VTE Proph given/why not?: Treatment not indicated
[2017-02-25 07:00] VITALS: BP 115/77; PULSE 69; TEMP 37.1; O2SAT 98
[2017-02-25 07:20] VITALS: BP 109/83; PULSE 75; TEMP 36.6
[2017-02-25] MEDS ORDERED: PRENATAL VITAMIN TAB PO SCH (08:00)
[2017-02-25] MEDS: DOCUSATE SODIUM 100 MG CAP PO SCH (08:02)
[2017-02-25] MEDS ORDERED: BISACODYL 5 MG TABEC PO SCH (20:00)
[2017-02-26] MEDS ORDERED: BISACODYL 10 MG SUPP PR PRN (07:00)
== END 2017-02-25 12:50 | disposition home or self-care (01) | DRG 775 ==
LOC: C.OPB 09:03 → C.LD 09:04 → EEVIPCON 09:12 → C.LD 09:12 → C.OPB 09:12 → C.OBG 13:35
PROVIDERS: ADMIT Obstetrics & Gynecology; ATTEND Obstetrics & Gynecology
PROC: 10E0XZZ Delivery of Products of Conception, External Approach (ICD-10-PCS; principal; 2017-02-24)
PROC: 10907ZC Drainage of Amniotic Fluid, Therapeutic from Products of Conception, Via Natural or Artificial Opening (ICD-10-PCS; principal; 2017-02-24)
DX: O48.0 Post-term pregnancy (principal); Z3A.40 40 weeks gestation of pregnancy; Z37.0 Single live birth; O77.0 Labor and delivery complicated by meconium in amniotic fluid

== ENCOUNTER → 2017-04-10 | Outpatient (CLI) | payer OTHER ==
[~2017-04-10] MED LIST changes: -FERR1TAB23
== END | disposition home or self-care (01) ==
LOC: C.PAPS 16:34
PROVIDERS: ATTEND Obstetrics & Gynecology
DX: Z39.2 Encounter for routine postpartum follow-up (principal)